=== PATIENT | female | born 1975 | race American Indian/Alaskan Native ===

== ENCOUNTER → 2017-08-10 | Day surgery (SDC) | payer MEDICAID ==
[~2017-08-10] MED LIST: Acetaminophen/oxyCODONE 325-5 MG Tab PO PRN; Albuterol 6.7 GM Inhaler INH ONE; Bupivacaine 0.5% 10 ML SDV INJECT ONE; Bupivacaine 0.5% 10 ML SDV ONE; Dexamethasone 4 MG/ML SDV IV ONE; Glycopyrrolate 0.2 MG/ML 2 ML SDV IV ONE; Ketorolac 30 MG/ML SDV IVPUSH ONE; Lactated Ringers 1,000 ML IV SCH; Lidocaine 1% 30 ML SDV INJECT ONE; Lidocaine 1% 30 ML SDV ONE; Midazolam 1 MG/ML 2 ML SDV IV ONE; Neostigmine Methylsulfate 10 MG/10 ML MDV IV ONE; Ondansetron 4 MG/2 ML SDV IV ONE; Propofol 200 MG/20 ML SDV IV ONE; Rocuronium 50 MG/5 ML Vial IV ONE; Sodium Chloride 0.9% 10 ML Syringe FLUSH PRN; Succinylcholine 200 MG/10 ML MDV IV ONE; ceFAZolin 1 GM in Premix Bag 1 BAG IV ONE; fentaNYL 100 MCG/2 ML SDV IV ONE
--- NOTE | 2017-08-10 11:27 | PCM.OPNOTE ---
- General Post-Op/Procedure Note Date of Surgery/Procedure: 08/10/17 Operative Procedure(s): right foot open plantar fascia release, tendoachilles lengthening Pre Op Diagnosis: right foot plantar fasciitis, equinus, residual clubfoot deformity Post-Op Diagnosis: trista Anesthesia Technique: General LMA Primary Surgeon: Zenobia Cueva Anesthesia Provider: Paolo Dwyer EBL in mLs: 5 Complications: none Condition: Good Free Text/Narrative:: Pt tolerated procedure well and was transported to recovery with vascular status intact to right LE. TT 58 mins. Pt placed in well padded L&U splint with foot in neutral.
--- NOTE | 2017-08-11 12:45 | OR ---
DATE: 08/10/2017 PREOPERATIVE DIAGNOSES: 1. Right foot plantar fasciitis. 2. Right foot gastroc soleus equinus. 3. Residual clubfoot deformity, right foot. POSTOPERATIVE DIAGNOSES: 1. Right foot plantar fasciitis. 2. Right foot gastroc soleus equinus. 3. Residual clubfoot deformity, right foot. PROCEDURES PERFORMED: 1. Right foot open plantar fascial release, total. 2. Right foot tendo Achilles lengthening. ANESTHESIA: General with preoperative local block of 10 mL 1:1 mixture of 1% lidocaine plain and 0.5% Marcaine plain. TOURNIQUET TIME: 58 minutes, pneumatic thigh tourniquet. ESTIMATED BLOOD LOSS: Minimal. SPECIMENS: None. COMPLICATIONS: None. INDICATIONS: Anne Swan is a 42-year-old female who presents for bilateral foot pain. She had clubfoot when she was born, did have a surgery when she was 10 years old when they did some releases. However, she states that she did not do any physical therapy or any exercises after that surgery and her heel cords became very tight again. Now, she is having significant pain in both feet. She has pain and swelling every day, worst when she is standing or walking. She has tried multiple different shoes, custom orthotics, stretching, icing with no relief. She is very nervous about doing any procedure to her feet. She does have a 10-year-old son at home whom she takes care of. She wants a surgical correction, however, does not want to do any bone type procedure yet. We are starting with soft tissue procedure as her main complaint is heel pain and a very tight plantar fascia band that pushes under her shoes that causes her significant pain, and also, there is cramping on bottom of her feet, she also walks on her toes because her heel cord is so tight and these are her two main complaints. The patient voiced good understanding of the proposed procedure and possible complications and elects to have surgery at this time. DESCRIPTION OF PROCEDURE: The patient was taken to the operating room lying in the supine position, and she was transferred to the prone position after adequate anesthesia induction. The foot and leg were then prepped and draped in the usual sterile fashion on the right high. The pneumatic thigh tourniquet was then inflated to 230 mmHg. Attention was then directed to the right foot. At the plantar aspect of the right foot just distal to the calcaneus, where an approximately 3 cm linear incision was made to gain access to the plantar band of the plantar fasciitis. The plantar fascia band was identified and was released at the entire section of the plantar fascia band, both medial, central and lateral and then approximately 1 cm where a section of the plantar fascia was then resected from the foot. The area was inspected and revealed no further tightness in the area, and the entire plantar fascia band was released. The area was then irrigated with copious amounts of sterile saline. Deep closure was completed with 3-0 Vicryl and skin closure was completed with 4-0 nylon. Attention was then directed to the posterior lower leg just medial to the Achilles tendon, where an approximately 7 cm linear incision was made through this area. A sharp and blunt dissection was made down to the level of the Achilles tendon. There was noted to be some scar tissue where the tendon was adhered to the tendon area from prior surgery and this was released. A Z lengthening was then made in the Achilles tendon starting at approximately 5 cm proximal to the insertion site of the Achilles tendon. The medial arm of the was made at the distal aspect, and the lateral was proximal. The foot was then moved to a neutral position, and the Achilles tendon . The Achilles tendon was then repaired with 0 Ethibond, the plantar was noted to be very tight at this time as well and was released and banned out and secured down to the Achilles tendon. The area was then irrigated with copious amounts of saline. All neurovascular bundles were carefully retracted during procedure. The closure was completed with 3-0 Vicryl, and skin closure was completed with 4- 0 nylon. The area was dressed with Xeroform to the incision site, fluffs, Webril, and a well-padded L and U splint with the foot and ankle in neutral position. The patient tolerated the procedure well and was transferred to the recovery room with vital signs stable and vascular status intact to the right foot as noted by immediate hyperemia to all digits upon deflation of the thigh tourniquet. Total tourniquet time was 58 minutes. The patient was then discharged home when she met the hospital discharge requirements. MODL /[id number]
== END ==
LOC: DL.SDS 08:11
PROVIDERS: ATTEND Podiatrist
DX: M72.2 Plantar fascial fibromatosis (principal); Q66.89 Other specified congenital deformities of feet; L71.9 Rosacea, unspecified; F41.9 Anxiety disorder, unspecified; F32.9 Major depressive disorder, single episode, unspecified; F17.210 Nicotine dependence, cigarettes, uncomplicated; Z79.899 Other long term (current) drug therapy
CPT/HCPCS: 01470; 27685; 28008; J0330; J0690; J1100; J1885; J2250; J2405; J2704; J2710; J3010; J7050; J7120; J3490